=== PATIENT | female | born 1975 | race Caucasian/White ===

== ENCOUNTER → 2016-10-28 | Outpatient (REF) | payer OTHER | LOC: M LAB REF 16:58 | PROVIDERS: ATTEND Family Medicine | DX: N39.3 Stress incontinence (female) (male) (principal) ==

== ENCOUNTER → 2016-12-04 | Outpatient (REF) | payer OTHER ==
[2016-12-04 10:46] LABS: BASO % 0.7 % (0.0-1.0); EOS # 0.2 K/mm3 (0.0-0.50); EOS % 2.8 % (0.0-3.0); LARGE UNSTAINED CELL # 0.1 K/mm3 (0.0-0.4); LARGE UNSTAINED CELL % 1.5 % (0.0-4.0); LYMPH # 1.7 K/mm3 (1.5-4.5); LYMPH % 31.1 % (24.0-44.0); MEAN CORPUSCULAR HEMOGLOBIN 32.4 pg (27.0-33.0); MEAN CORPUSCULAR HGB CONC 32.7 g/dl (32.0-36.5); MEAN CORPUSCULAR VOLUME 98.8 fl (80.0-96.0); MONO # 0.3 K/mm3 (0.0-0.8); MONO % 4.7 % (0.0-5.0); NEUTROPHILS # 3.3 K/mm3 (1.8-7.7); NEUTROPHILS % 59.2 % (36.0-66.0); PLATELET COUNT, AUTOMATED 160 k/mm3 (150-450); WHITE BLOOD COUNT 5.5 K/mm3 (4.0-10.0)
[2016-12-04 11:07] LABS: ALBUMIN 3.6 GM/DL (3.2-5.2); ALBUMIN/GLOBULIN RATIO 1.03 (1.00-1.93); ALKALINE PHOSPHATASE 54 U/L (45-117); ALT/SGPT 29 U/L (12-78); ANION GAP 8 MEQ/L (8-16); AST/SGOT 19 U/L (15-37); BILIRUBIN,TOTAL 0.6 MG/DL (0.2-1.0); BLOOD UREA NITROGEN 17 MG/DL (7-18); CALCIUM LEVEL 8.7 MG/DL (8.5-10.1); CARBON DIOXIDE LEVEL 27 MEQ/L (21-32); CHLORIDE LEVEL 106 MEQ/L (98-107); CREATININE FOR GFR 0.92 MG/DL (0.55-1.02); FREE T4 0.88 NG/DL (0.76-1.46); GLOMERULAR FILTRATION RATE > 60.0 (>58); GLUCOSE, FASTING 70 MG/DL (70-105); POTASSIUM SERUM 3.9 MEQ/L (3.5-5.1); SODIUM LEVEL 141 MEQ/L (136-145); TOTAL PROTEIN 7.1 GM/DL (6.4-8.2)
== END ==
LOC: M LABDRAW1 07:39
PROVIDERS: ATTEND Family Medicine
DX: Z13.0 Encounter for screening for diseases of the blood and blood-forming organs and certain disorders involving the immune mechanism (principal); Z13.29 Encounter for screening for other suspected endocrine disorder

== ENCOUNTER → 2018-01-14 | Outpatient (REF) | payer OTHER ==
[2018-01-14 10:49] LABS: BASO % 0.6 % (0.0-1.0); EOS # 0.1 10^3/uL (0.0-0.50); EOS % 1.7 % (0.0-3.0); HEMATOCRIT 38.5 % (36.0-47.0); HEMOGLOBIN 12.7 g/dl (12.0-15.5); IMMATURE GRANULOCYTE % 0.4 % (0-3.0); LYMPH # 1.6 10^3/uL (1.5-4.5); LYMPH % 29.8 % (24.0-44.0); MEAN CORPUSCULAR HEMOGLOBIN 32.2 pg (27.0-33.0); MEAN CORPUSCULAR VOLUME 97.5 fl (80.0-96.0); MONO # 0.3 10^3/uL (0.0-0.8); MONO % 5.9 % (0.0-5.0); NEUTROPHILS # 3.3 10^3/uL (1.8-7.7); NEUTROPHILS % 61.6 % (36.0-66.0); PLATELET COUNT, AUTOMATED 197 10^3/uL (150-450); RED BLOOD COUNT 3.95 10^6/uL (4.00-5.40); WHITE BLOOD COUNT 5.4 10^3/uL (4.0-10.0)
[2018-01-14 11:33] LABS: ALBUMIN 3.5 GM/DL (3.2-5.2); ALKALINE PHOSPHATASE 48 U/L (45-117); ALT/SGPT 22 U/L (12-78); ANION GAP 6 MEQ/L (8-16); AST/SGOT 19 U/L (7-37); BILIRUBIN,TOTAL 0.6 MG/DL (0.2-1.0); BLOOD UREA NITROGEN 19 MG/DL (7-18); CALCIUM LEVEL 8.8 MG/DL (8.5-10.1); CARBON DIOXIDE LEVEL 28 MEQ/L (21-32); CHLORIDE LEVEL 106 MEQ/L (98-107); CHOLESTEROL LEVEL 180 MG/DL (<200); CHOLESTEROL RISK RATIO 3.333 (<5); CREATININE FOR GFR 0.96 MG/DL (0.55-1.30); FREE T4 0.87 NG/DL (0.76-1.46); GLOMERULAR FILTRATION RATE > 60.0 (>58); GLUCOSE, FASTING 76 MG/DL (70-100); HDL CHOLESTEROL 54 MG/DL (>40); NON-HDL-C 126 MG/DL; POTASSIUM SERUM 4.3 MEQ/L (3.5-5.1); SODIUM LEVEL 140 MEQ/L (136-145); THYROID STIMULATING HORMONE 0.981 uIU/ML (0.358-3.740); TRIGLYCERIDES LEVEL 120 MG/DL (<150)
== END ==
LOC: M LABDRAW1 08:35
DX: Z13.0 Encounter for screening for diseases of the blood and blood-forming organs and certain disorders involving the immune mechanism (principal); Z13.220 Encounter for screening for lipoid disorders; Z13.29 Encounter for screening for other suspected endocrine disorder

== ENCOUNTER → 2018-03-24 | Outpatient (REF) | payer OTHER ==
[2018-03-24 14:15] LABS: BACTERIA, URINE AUTO NEGATIVE (NEGATIVE); RBC, URINE AUTO 1 /HPF (0-3); SQUAMOUS EPITHELIAL CELL UR AU 0 /HPF (0-6); WBC, URINE AUTO 0 /HPF (0-3)
== END ==
LOC: M LAB REF 13:28
DX: R31.29 Other microscopic hematuria (principal)

== ENCOUNTER → 2018-10-17 | Outpatient (REF) | payer OTHER ==
[2018-10-19 14:11] LABS: HPV HYBRID CAPTURE II Negative (Negative)
== END ==
LOC: M SFHCWAGY 08:14
PROVIDERS: ATTEND Nurse Practitioner Women's Health
DX: Z12.4 Encounter for screening for malignant neoplasm of cervix (principal)
CPT/HCPCS: 87624; G0123

== ENCOUNTER → 2021-04-23 | Outpatient (REF) | payer OTHER | LOC: M LAB REF 17:51 | PROVIDERS: ATTEND Physician Assistant | DX: R05.1 Acute cough (principal) ==

== ENCOUNTER → 2021-06-20 | Outpatient (CLI) | payer OTHER ==
[2021-06-20 10:44] LABS: BASO % 0.6 % (0.0-1.0); EOS # 0.1 10^3/uL (0.0-0.5); HEMATOCRIT 40.6 % (36.0-47.0); HEMOGLOBIN 13.2 g/dl (12.0-15.5); LYMPH % 29.7 % (24.0-44.0); MEAN CORPUSCULAR HEMOGLOBIN 30.8 pg (27.0-33.0); MEAN CORPUSCULAR HGB CONC 32.5 g/dl (32.0-36.5); MEAN CORPUSCULAR VOLUME 94.6 fl (80.0-96.0); MONO # 0.4 10^3/uL (0.0-0.8); MONO % 5.2 % (2.0-8.0); NEUTROPHILS # 4.3 10^3/uL (1.5-8.5); NEUTROPHILS % 63.4 % (36.0-66.0); PLATELET COUNT, AUTOMATED 218 10^3/uL (150-450); RED BLOOD COUNT 4.29 10^6/uL (4.00-5.40); WHITE BLOOD COUNT 6.8 10^3/uL (4.0-10.0)
[2021-06-20 11:35] LABS: ALBUMIN 3.7 GM/DL (3.2-5.2); ALT/SGPT 20 U/L (12-78); BILIRUBIN,TOTAL 0.4 MG/DL (0.2-1.0); BLOOD UREA NITROGEN 17 MG/DL (7-18); CARBON DIOXIDE LEVEL 27 MEQ/L (21-32); CHLORIDE LEVEL 107 MEQ/L (98-107); CHOLESTEROL LEVEL 206 MG/DL (<200); CHOLESTEROL RISK RATIO 4.039 (<5); CREATININE FOR GFR 0.93 MG/DL (0.55-1.30); FREE T4 0.91 NG/DL (0.76-1.46); GLOMERULAR FILTRATION RATE > 60.0 (>58); GLUCOSE, FASTING 83 MG/DL (70-100); HDL CHOLESTEROL 51 MG/DL (>40); LDL CHOLESTEROL 130 MG/DL (<100); NON-HDL-C 155 MG/DL; POTASSIUM SERUM 4.7 MEQ/L (3.5-5.1); SODIUM LEVEL 139 MEQ/L (136-145); TOTAL PROTEIN 7.1 GM/DL (6.4-8.2); TRIGLYCERIDES LEVEL 123 MG/DL (<150)
== END ==
LOC: M PLALAB 08:55
PROVIDERS: ATTEND Family Medicine
DX: Z13.29 Encounter for screening for other suspected endocrine disorder (principal); Z13.0 Encounter for screening for diseases of the blood and blood-forming organs and certain disorders involving the immune mechanism; Z13.220 Encounter for screening for lipoid disorders

== ENCOUNTER → 2022-06-19 | Outpatient (REF) | payer OTHER | LOC: M PLALAB 17:04 | PROVIDERS: ATTEND Nurse Practitioner Family | DX: Z12.4 Encounter for screening for malignant neoplasm of cervix (principal); R87.610 Atypical squamous cells of undetermined significance on cytologic smear of cervix (ASC-US) | CPT/HCPCS: 87624; G0123 ==

== ENCOUNTER → 2022-08-19 | Outpatient (REF) | payer OTHER ==
[2022-08-19 13:30] LABS: BASO # 0.1 10^3/uL (0.0-0.2); BASO % 0.7 % (0.0-1.0); EOS % 0.4 % (0.0-3.0); HEMATOCRIT 39.3 % (36.0-47.0); HEMOGLOBIN 12.7 g/dl (12.0-15.5); LYMPH # 1.9 10^3/uL (1.5-5.0); MEAN CORPUSCULAR HEMOGLOBIN 31.4 pg (27.0-33.0); MEAN CORPUSCULAR HGB CONC 32.3 g/dl (32.0-36.5); MEAN CORPUSCULAR VOLUME 97.3 fl (80.0-96.0); MONO # 0.5 10^3/uL (0.0-0.8); MONO % 5.6 % (2.0-8.0); NEUTROPHILS # 6.4 10^3/uL (1.5-8.5); PLATELET COUNT, AUTOMATED 212 10^3/uL (150-450); RED BLOOD COUNT 4.04 10^6/uL (4.00-5.40); WHITE BLOOD COUNT 8.9 10^3/uL (4.0-10.0)
[2022-08-19 14:05] LABS: ALBUMIN 3.6 G/DL (3.2-5.2); ALKALINE PHOSPHATASE 58 U/L (46-116); ALT/SGPT 33 U/L (7.0-40); AST/SGOT 27 U/L (<34); BILIRUBIN,TOTAL 0.6 MG/DL (0.3-1.2); BLOOD UREA NITROGEN 21 MG/DL (9-23); CALCIUM LEVEL 8.9 MG/DL (8.5-10.1); CARBON DIOXIDE LEVEL 25 MMOL/L (20-31); CHLORIDE LEVEL 105 MMOL/L (98-107); CHOLESTEROL LEVEL 204 MG/DL (<200); CHOLESTEROL RISK RATIO 3.57 (<5); CREATININE FOR GFR 0.88 MG/DL (0.55-1.30); GLOMERULAR FILTRATION RATE > 60.0 (>58); GLUCOSE, FASTING 75 MG/DL (60-100); HDL CHOLESTEROL 57.1 MG/DL (>40); LDL CHOLESTEROL 131.5 MG/DL (<100); NON-HDL-C 146.9 MG/DL; POTASSIUM SERUM 4.4 MMOL/L (3.5-5.1); SODIUM LEVEL 138 MMOL/L (136-145); TOTAL PROTEIN 6.8 G/DL (5.7-8.2); TRIGLYCERIDES LEVEL 77 MG/DL (<150)
[2022-08-19 14:06] LABS: THYROID STIMULATING HORMONE 1.359 uIU/ML (0.55-4.78)
== END ==
LOC: M LABDRWAD 12:41
PROVIDERS: ATTEND Family Medicine
DX: Z13.29 Encounter for screening for other suspected endocrine disorder (principal); Z13.0 Encounter for screening for diseases of the blood and blood-forming organs and certain disorders involving the immune mechanism; Z13.220 Encounter for screening for lipoid disorders

== ENCOUNTER → 2023-03-17 | Outpatient (REF) | payer OTHER ==
[2023-03-17 13:38] LABS: BASO # 0.1 10^3/uL (0.0-0.2); BASO % 0.5 % (0.0-1.0); EOS # 0.1 10^3/uL (0.0-0.5); EOS % 0.5 % (0.0-3.0); HEMATOCRIT 41.9 % (36.0-47.0); HEMOGLOBIN 14.1 g/dl (12.0-15.5); LYMPH # 1.7 10^3/uL (1.5-5.0); LYMPH % 18.3 % (24.0-44.0); MEAN CORPUSCULAR HEMOGLOBIN 32.3 pg (27.0-33.0); MEAN CORPUSCULAR HGB CONC 33.7 g/dl (32.0-36.5); MEAN CORPUSCULAR VOLUME 96.1 fl (80.0-96.0); MONO # 0.4 10^3/uL (0.0-0.8); MONO % 4.7 % (2.0-8.0); NEUTROPHILS # 6.9 10^3/uL (1.5-8.5); NEUTROPHILS % 75.8 % (36.0-66.0); PLATELET COUNT, AUTOMATED 246 10^3/uL (150-450); RED BLOOD COUNT 4.36 10^6/uL (4.00-5.40); WHITE BLOOD COUNT 9.1 10^3/uL (4.0-10.0)
[2023-03-17 13:53] LABS: ALBUMIN 3.8 G/DL (3.2-5.2); ALKALINE PHOSPHATASE 55 U/L (46-116); ALT/SGPT 16 U/L (7.0-40); AST/SGOT 19 U/L (<34); BILIRUBIN,TOTAL 0.6 MG/DL (0.3-1.2); BLOOD UREA NITROGEN 17 MG/DL (9-23); CALCIUM LEVEL 9.3 MG/DL (8.5-10.1); CARBON DIOXIDE LEVEL 26 MMOL/L (20-31); CHLORIDE LEVEL 103 MMOL/L (98-107); CHOLESTEROL LEVEL 203 MG/DL (<200); CREATININE FOR GFR 0.84 MG/DL (0.55-1.30); GLOMERULAR FILTRATION RATE > 60.0 (>58); GLUCOSE, FASTING 75 MG/DL (60-100); POTASSIUM SERUM 4.3 MMOL/L (3.5-5.1); SODIUM LEVEL 138 MMOL/L (136-145); TOTAL PROTEIN 7.3 G/DL (5.7-8.2); TRIGLYCERIDES LEVEL 118 MG/DL (<150)
[2023-03-17 18:54] LABS: CHOLESTEROL RISK RATIO 3.44 (<5); LDL CHOLESTEROL 120.4 MG/DL (<100)
== END ==
LOC: M LABDRWAD 12:56
PROVIDERS: ATTEND Physician Assistant
DX: E78.00 Pure hypercholesterolemia, unspecified (principal)

== ENCOUNTER → 2024-04-05 | Outpatient (REF) | payer OTHER ==
[2024-04-10 16:42] LABS: HPV APTIMA Not Detected (Not Detected)
== END ==
LOC: M SFHCWAGY 09:51
PROVIDERS: ATTEND Nurse Practitioner Family
DX: Z12.4 Encounter for screening for malignant neoplasm of cervix (principal)
CPT/HCPCS: 87624; G0123

== ENCOUNTER → 2024-06-16 | Outpatient (CLI) | payer OTHER | LOC: M RAD 07:41 | PROVIDERS: ATTEND Family Medicine | DX: N83.292 Other ovarian cyst, left side (principal); N85.8 Other specified noninflammatory disorders of uterus ==

== ENCOUNTER → 2025-05-04 | Outpatient (REF) | payer OTHER ==
[2025-05-08 14:06] LABS: HPV APTIMA Not Detected (Not Detected)
== END ==
LOC: M SFHCWAGY 17:11
PROVIDERS: ATTEND Advanced Practice Midwife
DX: Z12.4 Encounter for screening for malignant neoplasm of cervix (principal)
CPT/HCPCS: 87624; G0123

== ENCOUNTER → 2025-05-04 | Outpatient (CLI) | payer OTHER | LOC: M WHC 15:30 | PROVIDERS: ATTEND Advanced Practice Midwife | DX: Z12.31 Encounter for screening mammogram for malignant neoplasm of breast (principal) ==